=== PATIENT | male | born 1990 | race Caucasian/White ===

== ENCOUNTER 2018-02-16 17:22 | Emergency (ER) | payer BC ==
[2018-02-16 18:20] VITALS: BP 147/87
--- NOTE | 2018-02-16 19:01 | UC ---
Ear Complaint HPI - HPI Summary HPI Summary: Pt presents with c/o bilateral ear pain. Right ear "feels plugged" and left ear is painful X 3-4 days. Pt states he had "Severe cold " last week - History of Current Complaint Chief Complaint: UCEar Stated Complaint: LT EAR COMPLAINT Time Seen by Provider: 02/16/18 18:57 Hx Obtained From: Patient Onset/Duration: Gradual Onset, Lasting Days, Still Present Severity Initially: Mild Severity Currently: Moderate Pain Intensity: 6 Associated Signs/Symptoms: Positive: Hearing Loss, URI Symptoms - Allergies/Home Medications Allergies/Adverse Reactions: Allergies Allergy/AdvReac Type Severity Reaction Status Date / Time egg Allergy Anaphylatic Verified 02/16/18 18:18 Shock tree nut Allergy Anaphylatic Verified 02/16/18 18:18 Shock wheat Allergy Anaphylatic Verified 02/16/18 18:18 Shock Home Medications: Home Medications EPINEPHrine [Epipen 2-Anupam] 0.3 mg IM ONCE 02/16/18 [History Confirmed 02/16/18] PMH/Surg Hx/FS Hx/Imm Hx Previously Healthy: Yes - Surgical History Surgical History: Yes Surgery Procedure, Year, and Place: tonsils - Family History Known Family History: Positive: Cardiac Disease - Social History Occupation: Employed Full-time Lives: With Family Alcohol Use: Rare Substance Use Type: None Smoking Status (MU): Light Every Day Tobacco Smoker Type: Cigarettes Amount Used/How Often: 1/4 ppd Length of Time of Smoking/Using Tobacco: age 20 Have You Smoked in the Last Year: Yes Review of Systems All Other Systems Reviewed And Are Negative: Yes Constitutional: Positive: Fatigue Skin: Positive: Negative Eyes: Positive: Negative ENT: Positive: Ear Ache, Sinus Congestion Respiratory: Positive: Negative Cardiovascular: Positive: Negative Gastrointestinal: Positive: Negative Genitourinary: Positive: Negative Motor: Positive: Negative Neurovascular: Positive: Negative Musculoskeletal: Positive: Negative Neurological: Positive: Negative Psychological: Positive: Negative Is Patient Immunocompromised?: No Physical Exam Triage Information Reviewed: Yes Appearance: Well-Appearing Vital Signs: Initial Vital Signs Temp 98.1 F 02/16/18 18:16 Pulse 74 02/16/18 18:16 Resp 16 02/16/18 18:16 BP 147/87 02/16/18 18:16 Pulse Ox 98 02/16/18 18:16 Vital Signs Reviewed: Yes Eye Exam: Normal ENT: Positive: TM bulging - right and left, TM red - left Dental Exam: Normal Neck exam: Normal Respiratory Exam: Normal Cardiovascular Exam: Normal Musculoskeletal Exam: Normal Neurological Exam: Normal Psychological Exam: Normal Skin Exam: Normal Ear Complaint Course/Dx - Differential Dx/Diagnosis Differential Diagnosis/HQI/PQRI: Otitis Media, URI Provider Diagnosis: Otitis media of left ear Discharge - Sign-Out/Discharge Documenting (check all that apply): Patient Departure All imaging exams completed and their final reports reviewed: No Studies - Discharge Plan Condition: Stable Disposition: HOME Prescriptions: Amoxicillin PO (*) [Amoxicillin 500 MG CAP*] 500 mg PO Q12H #20 cap Patient Education Materials: Ear Infection (ED) Referrals: [facility] [Outside] No Primary Care Phys,NOPCP [Primary Care Provider] - - Billing Disposition and Condition Condition: STABLE Disposition: Home
== END 2018-02-16 19:12 | disposition home or self-care (01) ==
LOC: UCCORT 17:22
DX: H66.92 Otitis media, unspecified, left ear (principal); F17.210 Nicotine dependence, cigarettes, uncomplicated
CPT/HCPCS: 99202; G0463

== ENCOUNTER 2019-02-10 10:13 | Emergency (ER) | payer BC ==
[2019-02-10 11:04] VITALS: BP 122/78
--- NOTE | 2019-02-10 11:15 | UC ---
Back Pain HPI - HPI Summary HPI Summary: 28-year-old male comes in with a chief complaint of low back pain. Started about 2 weeks ago when he was being pulled around by his dog that was on a leash. Most recently pain got a lot worse while putting a deer in the back of his truck. Pains in the lower lumbar area.. It does not radiate into the legs there is no weakness or numbness or difficulty controlling urine or bowels. Pain is worse with twisting turning bending. Naproxen and stretching have help some. - History of Current Complaint Chief Complaint: UCBackPain Stated Complaint: LOWER BACK PAIN Time Seen by Provider: 02/10/19 10:57 Pain Intensity: 7 - Allergies/Home Medications Allergies/Adverse Reactions: Allergies Allergy/AdvReac Type Severity Reaction Status Date / Time egg Allergy Anaphylatic Verified 02/10/19 11:04 Shock tree nut Allergy Anaphylatic Verified 02/10/19 11:04 Shock wheat Allergy Anaphylatic Verified 02/10/19 11:04 Shock Home Medications: Home Medications Loratadine [Claritin] 10 mg PO DAILY PRN 02/10/19 [History Confirmed 02/10/19] Naproxen Sodium [Naproxen 220 mg] 220 mg PO DAILY PRN 02/10/19 [History Confirmed 02/10/19] PMH/Surg Hx/FS Hx/Imm Hx Previously Healthy: Yes - Surgical History Surgical History: Yes Surgery Procedure, Year, and Place: tonsils - Family History Known Family History: Positive: Cardiac Disease - Social History Alcohol Use: Rare Substance Use Type: None Smoking Status (MU): Light Every Day Tobacco Smoker Type: Cigarettes Amount Used/How Often: 1/4 ppd Length of Time of Smoking/Using Tobacco: age 20 Have You Smoked in the Last Year: Yes When Did the Patient Quit Smoking/Using Tobacco: 2017 Review of Systems All Other Systems Reviewed And Are Negative: Yes Constitutional: Positive: Negative Skin: Positive: Negative Eyes: Positive: Negative ENT: Positive: Negative Respiratory: Positive: Negative Cardiovascular: Positive: Negative Gastrointestinal: Positive: Negative Genitourinary: Positive: Negative Motor: Positive: Negative Neurovascular: Positive: Negative Musculoskeletal: Positive: Other: - SEE HPI Neurological: Positive: Negative Psychological: Positive: Negative Is Patient Immunocompromised?: No Physical Exam Triage Information Reviewed: Yes Appearance: Well-Appearing, Well-Nourished, Pain Distress - MILD WITH ROM Vital Signs: Initial Vital Signs Temp 98.0 F 02/10/19 10:58 Pulse 74 02/10/19 10:58 Resp 16 02/10/19 10:58 BP 122/78 02/10/19 10:58 Pulse Ox 99 02/10/19 10:58 Vital Signs Reviewed: Yes Eye Exam: Normal Eyes: Positive: Conjunctiva Clear Neck: Positive: Supple Respiratory: Positive: No respiratory distress Musculoskeletal: Positive: Strength Intact, ROM Intact, Other: - Low back is tender to palpation. Legs have full range of motion full-strength normal sensation. Neurological: Positive: Alert Psychological: Positive: Age Appropriate Behavior Skin Exam: Normal Back Pain Course/Dx - Differential Dx/Diagnosis Provider Diagnosis: Low back pain Discharge ED - Sign-Out/Discharge Documenting (check all that apply): Patient Departure All imaging exams completed and their final reports reviewed: No Studies - Discharge Plan Condition: Stable Disposition: HOME Prescriptions: Cyclobenzaprine TAB* [Flexeril 10 MG TAB*] 10 mg PO TID PRN #15 tab MDD 3 PRN Reason: Pain - Moderate Patient Education Materials: Acute Low Back Pain (ED), Lower Back Exercises (ED ) Referrals: [facility] [Outside] [facility] [Provider Group] Additional Instructions: FOLLOW UP WITH YOUR PRIMARY CARE DOCTOR OR SPORTS MEDICINE IF NOT COMPLETELY IMPROVED. GET REEVALUATED SOONER IF NOT IMPROVING OR WORSE; WEAKNESS, NUMBNESS, DIFFICULTY CONTROLLING BOWEL OR BLADDER OR ANY QUESTIONS OR CONCERNS. - Billing Disposition and Condition Condition: STABLE Disposition: Home
== END 2019-02-10 11:28 | disposition home or self-care (01) ==
LOC: UCCORT 10:13
DX: M54.5 Low back pain (principal); F17.210 Nicotine dependence, cigarettes, uncomplicated; Z91.012 Allergy to eggs; Z91.018 Allergy to other foods
CPT/HCPCS: 99212; G0463